=== PATIENT | male | born 2000 | race Caucasian/White ===

== ENCOUNTER 2025-02-22 22:01 | Emergency (ER) | payer BC, SELFPAY ==
[2025-02-22 22:05] VITALS: BP 126/57
[2025-02-23 01:05] VITALS: BMI 30.9
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
[2025-02-23 02:59] VITALS: BP 138/45
[2025-02-23 03:12] VITALS: BP 138/45
== END 2025-02-23 03:13 | disposition home or self-care (01) ==
LOC: EMR 22:01
PROVIDERS: EMERGENCY PHYSICIAN Emergency Medicine; FAMILY PHYSICIAN Family Medicine
DX: S01.112A Laceration without foreign body of left eyelid and periocular area, initial encounter (principal); W50.0XXA Accidental hit or strike by another person, initial encounter; R03.0 Elevated blood-pressure reading, without diagnosis of hypertension
CPT/HCPCS: 99282; 12013